=== PATIENT | female | born 1955 | race Two or more races ===

== ENCOUNTER 2020-04-04 09:22 | Outpatient (CLI) | payer OTHER ==
[~2020-04-04 09:22] MED LIST: ATENOLOL100 MG; GLIMEPIRIDE4 MG; GLUCOPHAGE XR500 MG; LANTUS SOLOSTAR3 ML; OMEPRAZOLE40 MG
== END 2020-04-04 09:28 | disposition home or self-care (01) ==
LOC: RAD 09:22
PROVIDERS: ATTEND Orthopaedic Surgery
DX: M25.511 Pain in right shoulder (principal); M25.512 Pain in left shoulder; M25.521 Pain in right elbow; M25.522 Pain in left elbow

== ENCOUNTER 2021-12-06 14:00 | Outpatient (CLI) | payer OTHER | END 2021-12-06 14:30 | disposition home or self-care (01) | LOC: PPH VACUNA 14:00 | PROVIDERS: ATTEND Emergency Medicine Pediatric Emergency Medicine | DX: Z23 Encounter for immunization (principal) ==

== ENCOUNTER 2025-06-21 18:36 | Inpatient (IN) | payer OTHER ==
[~2025-06-21] VITALS: Ht 149.9 cm; Wt 63.0 kg
--- NOTE | 2025-06-21 19:08 | NUR ---
SE RECIBE PACIENTE ALERTA Y ORIENTADA X3 EN COMPANIA DE FAMILIARES LOS CUALES REFIEREN TRAER A PACIENTE A CAUSA DE QUE SUFRIO UN SINCOPE. SE REALIZA EKG Y SE PRESENTA A MD.
[2025-06-21] MEDS ORDERED: ONDANSETRON HCL 2 MG/ML VIAL IV ONE (19:45)
[2025-06-21] MEDS ORDERED: FAMOtidine 10 MG/ML (4ML VIAL) IV PUSH ONE (19:45)
[2025-06-21] MEDS ORDERED: 0.9 % SODIUM CHLORIDE 1,000 ML IV SCH ×2 (19:45→23:00)
--- NOTE | 2025-06-21 19:56 | NUR ---
SE ORIENTA A PACIENTE SOBRE TRATAMIENTO MEDICO, REFIERE ENTENDER. SE REALIZAN MUESTRAS DE LABORATORIO BAJO MEDIDAS ASEPTICAS. SE ADMINISTRAN MEDICAMENTOS YANET ORDEN MEDICA. SE COORDINA CT. PACIENTE MANEJADA POR .
[2025-06-21 20:17] LABS: BASO % 0.5 % (0.1-1.2); EOS # 0.05 (0.04-0.54); EOS % 0.7 % (0.7-7.0); LYMPH # 0.49 (1.18-3.74); LYMPH % 6.5 % (19.3-53.1); MEAN PLATELET VOLUME 9.80 fl (9.4-12.4); MONO # 0.67 (0.24-0.82); MONO % 8.9 % (4.7-12.5); NEUT # 6.25 (1.56-6.13); NEUT % 83.3 % (34.0-71.1); RED CELL DISTRIBUTION WIDTH 14.6 % (11.6-14.4)
[2025-06-21 20:46] LABS: INR 1.07
[2025-06-21 20:50] LABS: ALT/SGPT 19.0 U/L (12-78); AST/SGOT 23.0 U/L (15-37); BILIRUBIN TOTAL 0.57 mg/dL (0.3-1.2); BUN CREA RATIO 17.0 (7.0-25.0); CREATININE SERUM 1.32 mg/dL (0.55-1.02); GFR 39.9; GLOBULINA 3.6 G/DL (2.4-3.5); GLUCOSE FASTING 121.0 mg/dL (65-100); OSMOLALITY SERUM 281.0 MOSM/KG (275-295)
[2025-06-21 21:05] LABS: URINE APPEARANCE Cloudy; URINE BILIRRUBIN Negative (NEGATIVE); URINE BLOOD Trace; URINE COLOR Yellow; URINE KETONE 15 (NEGATIVE); URINE LEUKOCYTE Negative; URINE NITRATE Positive; URINE PROTEIN 30 (NEGATIVE); URINE UROBILINOGEN 1.0 E.U./dl
[2025-06-21 21:09] LABS: URINE CAST 2.05 uL (0.0-1.40); URINE EPITHELIAL CELLS 19.0 uL (0.0-38.8); URINE RBC 193.3 uL (0.0-20.8); URINE WBC 42.9 uL (0.0-23.2)
[2025-06-21 21:21] LABS: COVID-19 AG NEGATIVE (NEGATIVE)
[2025-06-21 21:45] LABS: URINE BACTERIA > 9821.5 uL (0.0-1933); URINE CRYSTALS MODERATE /HPF; URINE GLUCOSE >=1000 MG/DL (NEGATIVE)
[2025-06-21] MEDS ORDERED: FAMOTIDINE/PF 20 MG in 0.9 % SODIUM CHLORIDE 8 ML IV PUSH SCH (22:51)
[2025-06-21] MEDS ORDERED: ROSUVASTATIN CALCIUM 10 MG TABLET PO SCH (22:52)
[2025-06-21] MEDS ORDERED: CEFTRIAXONE SODIUM 2,000 MG in 0.9 % SODIUM CHLORIDE 100 ML IV SCH (22:52)
[2025-06-21] MEDS ORDERED: ACETAMINOPHEN 500 MG GEL..CAP PO PRN (23:00)
[2025-06-21] MEDS ORDERED: ONDANSETRON HCL 4 MG in 0.9 % SODIUM CHLORIDE 50 ML IV PRN (23:00)
[2025-06-22 02:34] VITALS: BP 117/72; O2SAT 95
[2025-06-22] MEDS ORDERED: LEVALBUTEROL HCL 1.25 MG/3 ML SOLUTION IH SCH (08:00)
[2025-06-22 08:54] VITALS: BP 101/65; O2SAT 94
[2025-06-22] MEDS ORDERED: ROSUVASTATIN CALCIUM 20 MG TABLET PO SCH (09:00)
[2025-06-22 16:32] LABS: FREE TRIODOTIRONINE 1.07 pg/ml (2.18-3.98); T3 UPTAKE 33.0 % (30-39); T4 FREE 1.21 NG/ML (0.76-1.46); T4 TOTAL 8.25 UG/DL (4.8-13.9)
[2025-06-22 16:51] VITALS: BP 166/98; O2SAT 98
[2025-06-22] MEDS ORDERED: CARVEDILOL 25 MG TABLET PO SCH (17:00)
[2025-06-22] MEDS ORDERED: LOSARTAN POTASSIUM 25 MG TABLET PO SCH (17:00)
[2025-06-22] MEDS ORDERED: DEXTROSE 50 % IN WATER 0.5 G/ML DISP.SYRIN IV PRN (17:15)
[2025-06-22] MEDS ORDERED: INSULIN LISPRO 1,000 UNIT/10 ML UNITS SUBCUTANEO PRN (17:15)
[2025-06-23 01:16] VITALS: BP 124/75; O2SAT 98
[2025-06-23 07:30] VITALS: BP 122/74; O2SAT 95
[2025-06-23 08:02] LABS: BASO % 0.4 % (0.1-1.2); EOS # 0.01 (0.04-0.54); EOS % 0.2 % (0.7-7.0); LYMPH # 1.14 (1.18-3.74); LYMPH % 24.7 % (19.3-53.1); MEAN PLATELET VOLUME 10.30 fl (9.4-12.4); MONO # 0.76 (0.24-0.82); NEUT # 2.67 (1.56-6.13); NEUT % 58.0 % (34.0-71.1); RED CELL DISTRIBUTION WIDTH 14.4 % (11.6-14.4)
[2025-06-23 08:49] LABS: ALT/SGPT 17.0 U/L (12-78); AST/SGOT 22.0 U/L (15-37); BILIRUBIN TOTAL 0.27 mg/dL (0.3-1.2); BUN CREA RATIO 23.0 (7.0-25.0); CREATININE SERUM 0.93 mg/dL (0.55-1.02); GFR 59.78; GLOBULINA 3.2 G/DL (2.4-3.5); GLUCOSE FASTING 85.0 mg/dL (65-100); MONO % 16.5 % (4.7-12.5); OSMOLALITY SERUM 283.0 MOSM/KG (275-295)
[2025-06-23] MEDS ORDERED: ISOSORBIDE MONONITRATE 30 MG TABLET PO SCH (09:00)
[2025-06-23] MEDS ORDERED: POTASSIUM PHOS,M-BASIC-D-BASIC 15 MM in 0.9 % SODIUM CHLORIDE 250 ML IV NR (12:30)
[2025-06-23 23:15] VITALS: BP 93/53; O2SAT 98
[2025-06-24 06:52] LABS: BASO % 0.6 % (0.1-1.2); EOS # 0.01 (0.04-0.54); EOS % 0.3 % (0.7-7.0); LYMPH # 1.56 (1.18-3.74); LYMPH % 45.9 % (19.3-53.1); MEAN PLATELET VOLUME 10.00 fl (9.4-12.4); MONO # 0.50 (0.24-0.82); NEUT # 1.30 (1.56-6.13); NEUT % 38.2 % (34.0-71.1); RED CELL DISTRIBUTION WIDTH 14.6 % (11.6-14.4)
[2025-06-24 07:02] LABS: MONO % 14.7 % (4.7-12.5)
[2025-06-24 07:47] LABS: BUN CREA RATIO 19.0 (7.0-25.0); CREATININE SERUM 0.95 mg/dL (0.55-1.02); GFR 58.33; GLUCOSE FASTING 95.0 mg/dL (65-100); OSMOLALITY SERUM 287.0 MOSM/KG (275-295); TSH 2.21 uIU/mL (0.358-3.74)
[2025-06-24 07:50] VITALS: BP 151/80; O2SAT 96
[2025-06-24] MEDS ORDERED: PATIENTS OWN MEDICATION (MEDICAMENTO EN PISO) PO SCH (09:00)
[2025-06-24 10:55] LABS: URINE APPEARANCE Clear; URINE BILIRRUBIN Negative (NEGATIVE); URINE BLOOD Negative; URINE COLOR Yellow; URINE KETONE Negative (NEGATIVE); URINE LEUKOCYTE Negative; URINE NITRATE Negative; URINE PROTEIN 30 (NEGATIVE); URINE UROBILINOGEN 0.2 E.U./dl
[2025-06-24 10:56] LABS: URINE EPITHELIAL CELLS 6.7 uL (0.0-38.8); URINE RBC 7.6 uL (0.0-20.8); URINE WBC 6.1 uL (0.0-23.2)
[2025-06-24 11:20] LABS: URINE BACTERIA 3.5 uL (0.0-1933); URINE CAST 0.29 uL (0.0-1.40); URINE GLUCOSE >=1000 MG/DL (NEGATIVE)
[2025-06-24] MEDS ORDERED: hydrALAZINE HCL 20 MG VIAL IV PRN (12:30)
[2025-06-24 13:57] VITALS: O2SAT 96
[2025-06-24 16:25] VITALS: O2SAT 95
[2025-06-24 16:30] VITALS: BP 98/65; O2SAT 96
[2025-06-24 19:53] VITALS: O2SAT 99
[2025-06-25] VITALS (8 sets, daily range): BP systolic 114–129; BP diastolic 67–79; O2SAT 90–97
[2025-06-26 01:19] VITALS: BP 127/75; O2SAT 97
[2025-06-26 05:47] VITALS: O2SAT 93
[2025-06-26 08:00] VITALS: BP 144/80; O2SAT 95
[2025-06-26 16:55] VITALS: BP 106/63; O2SAT 95
[2025-06-26 17:46] VITALS: O2SAT 93
[2025-06-26 21:59] VITALS: O2SAT 93
[2025-06-27] VITALS (8 sets, daily range): BP systolic 118–141; BP diastolic 69–91; O2SAT 87–100
[2025-06-27 07:51] LABS: BASO % 0.2 % (0.1-1.2); EOS # 0.19 (0.04-0.54); EOS % 4.2 % (0.7-7.0); LYMPH # 2.06 (1.18-3.74); LYMPH % 45.5 % (19.3-53.1); MEAN PLATELET VOLUME 10.30 fl (9.4-12.4); MONO # 0.37 (0.24-0.82); MONO % 8.2 % (4.7-12.5); NEUT # 1.87 (1.56-6.13); NEUT % 41.2 % (34.0-71.1); RED CELL DISTRIBUTION WIDTH 14.1 % (11.6-14.4)
[2025-06-27] MEDS ORDERED: AMINO ACIDS/PROTEIN HYDROLYS 30 ML BLIST.PACK PO SCH (17:00)
[2025-06-28] VITALS (8 sets, daily range): BP systolic 132–143; BP diastolic 58–89; O2SAT 88–96
[2025-06-28] MEDS ORDERED: FLUCONAZOLE IN NACL,ISO-OSM 200 MG/100 ML PIGGYBAG IV NR (14:15)
== END 2025-06-28 18:19 | DRG 312 ==
LOC: ER → SURG 22:53 → SURH 22:53 → SURG 06-24 14:19 → SURH 06-24 14:21
PROVIDERS: General Practice; Internal Medicine; Internal Medicine Endocrinology, Diabetes & Metabolism; Internal Medicine Infectious Disease; ADMIT Internal Medicine; ATTEND Internal Medicine
PROC: B030ZZZ Magnetic Resonance Imaging (MRI) of Brain (ICD-10-PCS; principal; 2025-06-21)
PROC: B020ZZZ Computerized Tomography (CT Scan) of Brain (ICD-10-PCS; 2025-06-21)
PROC: B24BYZZ Ultrasonography of Heart with Aorta using Other Contrast (ICD-10-PCS; 2025-06-21)
PROC: BW28ZZZ Computerized Tomography (CT Scan) of Head (ICD-10-PCS; 2025-06-21)
PROC: B030ZZZ Magnetic Resonance Imaging (MRI) of Brain (ICD-10-PCS; 2025-06-21)
PROC: BW24ZZZ Computerized Tomography (CT Scan) of Chest and Abdomen (ICD-10-PCS; 2025-06-24)
PROC: 4A12X4Z Monitoring of Cardiac Electrical Activity, External Approach (ICD-10-PCS; 2025-06-24)
DX: R55 Syncope and collapse (principal); N39.0 Urinary tract infection, site not specified; R65.10 Systemic inflammatory response syndrome (SIRS) of non-infectious origin without acute organ dysfunction; N17.9 Acute kidney failure, unspecified; E11.9 Type 2 diabetes mellitus without complications; Z79.4 Long term (current) use of insulin; R63.0 Anorexia; I10 Essential (primary) hypertension
CPT/HCPCS: 70551